=== PATIENT | female | born 1970 | race Caucasian/White ===

== ENCOUNTER → 2020-08-31 15:54 | Outpatient (CLI) | payer OTHER, SELFPAY ==
--- NOTE | ~2020-08-31 | MM_ITS ---
EXAMINATION: MM screening [facility] BI w evin HISTORY: Screening mammogram TECHNIQUE: Craniocaudal and mediolateral oblique 3-D tomosynthesis images were obtained and synthetic 2-D images were generated. CAD analysis was submitted and interpreted. COMPARISON: 06/24/2019 bilateral digital screening mammogram 03/07/2017 bilateral diagnostic digital mammogram and limited left breast ultrasound 09/08/2016 bilateral digital screening mammogram BREAST PARENCHYMAL COMPOSITION: There are scattered areas of fibroglandular density. FINDINGS: There are occasional small low-density circumscribed masses which appears stable. There is no evidence of suspicious mass, calcification, or architectural distortion to suggest malignancy in e ither breast. There has been no suspicious interval change. IMPRESSION: 1. No mammographic evidence of malignancy. 2. Recommend routine screening mammography in one year. BI-RADS Category 2: Benign Reviewed, dictated and finalized at location A. [employer]OR OF INDIVIDUAL GIVING
== END ==
PROVIDERS: Visit Provider Physician Assistant
DX: Z12.31 Encounter for screening mammogram for malignant neoplasm of breast (principal)
CPT/HCPCS: 77063; 77067

== ENCOUNTER → 2022-04-11 14:31 | Outpatient (CLI) | payer OTHER, SELFPAY ==
--- NOTE | ~2022-04-11 | MM_ITS ---
EXAMINATION: MM screening [facility] BI w evin HISTORY: Screening mammogram TECHNIQUE: Craniocaudal and mediolateral oblique 3-D tomosynthesis images were obtained and synthetic 2-D images were generated. CAD analysis was submitted and interpreted. COMPARISON: 08/31/2020, 06/24/2019, 03/07/2017, 09/08/2016 BREAST PARENCHYMAL COMPOSITION: There are scattered areas of fibroglandular density. FINDINGS: RIGHT BREAST: There is a mass in the anterior third of the outer breast 2 cm from the nipple. LEFT BREAST: There is no suspicious mass, calcification, or architectural distortion to suggest malig melida. There has been no significant interval change. IMPRESSION: 1. Right breast mass. 2. Additional mammographic views and possible breast ultrasound are recommended. BI-RADS Category 0: Incomplete: Needs additional imaging evaluation. Reviewed, dictated and finalized at location A. IMPRESSION: 1. Right breast mass. 2. Additional mammographic views and possible breast ultrasound are recommended . BI-RADS Category 0: Incomplete: Needs additional imaging evaluation.
== END ==
PROVIDERS: PCP Physician Assistant; Visit Provider Physician Assistant
DX: Z12.31 Encounter for screening mammogram for malignant neoplasm of breast (principal); R92.8 Other abnormal and inconclusive findings on diagnostic imaging of breast
CPT/HCPCS: 77063; 77067

== ENCOUNTER → 2022-04-21 08:14 | Outpatient (CLI) | payer OTHER, SELFPAY ==
--- NOTE | ~2022-04-21 | MMUS_ITS ---
EXAMINATION: MM diagnostic [facility] RT w evin, US breast RT limited HISTORY: Anterior right breast mass 3 cm lateral to the nipple reported on 04/11/2022 screening mammog evie examination TECHNIQUE: Additional 3-D tomosynthesis images of the right breast were performed and synthetic 2-D i mages were generated. CAD analysis was submitted and interpreted. High resolution subareolar right br east ultrasound was performed. COMPARISON: 04/11/2022 bilateral screening mammogram FINDINGS: MAMMOGRAPHIC FINDINGS: There is an approximately 5.7 mm circumscribed opacity in the lateral subareolar area. This has benig n mammographic features. No suspicious mass, architectural distortion, malignant calcification, skin thickening or retraction is noted. ULTRASOUND: Right breast 1:00 subareolar: There is an irregular anti-parallel hypoechoic approximately 3.2 x 3.5 mm lesion with vascularity. This mass is suspicious. Ultrasound-guided biopsy is recommended. 9:00 subareolar: Parallel circumscribed 3.2 x 6.6 x 5.1 mm sonolucency, with through transmission and posterior enhancement, consistent with small cyst 10:00 subareolar area: Parallel circumscribed sonolucency measuring approximately 2.3 x 5.1 x 4.1 mm, without internal vascularity or posterior shadowing, likely benign. IMPRESSION: 1. Suspicious irregular 3.2 x 3.5 mm lesion at 1:00 subareolar area 2. Ultrasound-guided biopsy is recommended BI-RADS category 4, suspicious findings. Dr. Hathaway telephoned the report and ultrasound-guided biopsy recommendation on 04/21/2022 at 0918 hours to Jocelyn Reviewed, dictated and finalized at location A. IMPRESSION: 1. Suspicious irregular 3.2 x 3.5 mm lesion at 1:00 subareolar area 2. Ultrasound-guided biopsy is recommended BI-RADS category 4, suspicious findings. Dr. Hathaway telephoned the report and ultrasound-guided biopsy recommendation on at 0918 hours to Jocelyn
== END ==
PROVIDERS: PCP Physician Assistant; Visit Provider Physician Assistant
DX: R92.8 Other abnormal and inconclusive findings on diagnostic imaging of breast (principal)
CPT/HCPCS: 76642; 77061; 77065; G0279

== ENCOUNTER 2022-05-03 10:17 | Outpatient (CLI) | payer OTHER, SELFPAY ==
--- NOTE | ~2022-05-03 | MMUS_ITS ---
MM post biopsy invasive RT, US breast biopsy RT w image 05/03/2022 11:31 (accession [id number]), 05/03/2022 11:30 (accession [id number]) EXAMINATION: US GUIDED NEEDLE BIOPSY WITH VACUUM ASSISTANCE DATE: 05/03/2022 11:38 CDT INDICATION: Right breast mass seen on previous examination. Ultrasound-guided core biopsy is request ed to evaluate for malignancy. TECHNIQUE AND FINDINGS: The risks and potential benefits of the procedure were discussed with the patient, and written inform ed consent was obtained. After sterile preparation of the right breast, 1% lidocaine was utilized fo r local anesthesia. 1% lidocaine with epinephrine was used for deep anesthesia. A 10G vacuum-assisted biopsy gun needle was advanced through to the outer edge of the region of inter est from a superior approach utilizing sonographic guidance. A total of 4 tissue core samples were o btained through the lesion. An Inrad tissue marker clip was then placed at the biopsy site. Hemostas is was achieved. The patient tolerated procedure well and there was no evidence of immediate complication. The patien t was given verbal instructions partly is from the department. Right breast mammograms to document t issue marker clip placement. The tissue samples were submitted to surgical pathology for histologic a nalysis. IMPRESSION: 1. Successful ultrasound-guided vacuum-assisted biopsy of right breast mass with tissue marker place ment. Please refer to pathology report for histologic analysis. Reviewed, dictated and finalized at location A. IMPRESSION: 1. Successful ultrasound-guided vacuum-assisted biopsy of right breast mass wi th tissue marker placement. Please refer to pathology report for histologic nickie lysis.
== END 2022-05-03 10:18 | disposition home or self-care (01) ==
PROVIDERS: PCP Physician Assistant; Visit Provider Physician Assistant
DX: R92.8 Other abnormal and inconclusive findings on diagnostic imaging of breast (principal); N63.41 Unspecified lump in right breast, subareolar
CPT/HCPCS: 19083; 88305; A4648

== ENCOUNTER 2024-09-04 14:08 | Outpatient (CLI) | payer OTHER, SELFPAY ==
--- NOTE | ~2024-09-04 | MM_ITS ---
EXAMINATION: MM screening [facility] BI w evin HISTORY: Screening TECHNIQUE: Craniocaudal and mediolateral oblique 3-D tomosynthesis images were obtained and synthetic 2-D images were generated. CAD analysis was submitted and interpreted. COMPARISON: Comparison to multiple prior studies sequentially, with oldest reviewed study dated 03/07. BREAST PARENCHYMAL COMPOSITION: Not dense: There are scattered areas of fibroglandular density. FINDINGS: There is no evidence of suspicious mass, calcification, or architectural distortion to sugg est malignancy in either breast. There has been no suspicious interval change. IMPRESSION: 1. No mammographic evidence of malignancy. 2. Recommend routine screening mammography in one year. BI-RADS Category 1: Negative Reviewed, dictated and finalized at location B. [employer] DIRECT[employer]
== END 2024-09-04 14:09 | disposition home or self-care (01) ==
LOC: MICIMG 14:09
PROVIDERS: PCP Physician Assistant; Visit Provider Physician Assistant
DX: Z12.31 Encounter for screening mammogram for malignant neoplasm of breast (principal)
CPT/HCPCS: 77063; 77067